=== PATIENT | male | born 1985 | race Caucasian/White ===

== ENCOUNTER 2019-01-01 09:13 | Emergency (ER) | payer BC ==
[2019-01-01] MEDS ORDERED: Sodium Chloride 0.9% 1,000 ML IV ONE (09:18)
[2019-01-01] MEDS ORDERED: Ondansetron 4 MG/2 ML SDV IVPUSH ONE (09:19)
--- NOTE | 2019-01-01 09:21 | EDM.PDOC ---
ED HPI GENERAL MEDICAL PROBLEM - General Chief Complaint: Flank Pain Stated Complaint: KIDNEY STONES Time Seen by Provider: 01/01/19 09:16 - History of Present Illness INITIAL COMMENTS - FREE TEXT/NARRATIVE: HISTORY AND PHYSICAL: History of present illness: Patient 33-year-old white male presents with a concern of flank pain patient states he had recent urolithiasis and was told he has 6-7 mm intrarenal stone he is a been on Toradol and Flomax he's had associated nausea denies fever chills or other complaints Review of systems: As per history of present illness and below otherwise all systems reviewed and negative. Past medical history: As per history of present illness and as reviewed below otherwise noncontributory. Surgical history: As per history of present illness and as reviewed below otherwise noncontributory. Social history: No reported history of drug or alcohol abuse. Family history: As per history of present illness and as reviewed below otherwise noncontributory. Physical exam: HEENT: Atraumatic, normocephalic, pupils reactive, negative for conjunctival pallor or scleral icterus, mucous membranes moist, throat clear, neck supple, nontender, trachea midline. Lungs: Clear to auscultation, breath sounds equal bilaterally, chest nontender. Heart: S1S2, regular, negative for clicks, rubs, or JVD. Abdomen: Soft, nondistended, nontender. Negative for masses or hepatosplenomegaly. Right sided costovertebral tenderness. Pelvis: Stable nontender. Genitourinary: Deferred. Rectal: Deferred. Extremities: Atraumatic, negative for cords or calf pain. Neurovascular unremarkable. Neuro: Awake, alert, oriented. Cranial nerves II through XII unremarkable. Cerebellum unremarkable. Motor and sensory unremarkable throughout. Exam nonfocal. Diagnostics: CBC CMP UA CT abdomen and pelvis Therapeutics: Saline 1 L bolus Zofran 4 mg IV Impression: #1 flank pain #2 history urolithiasis Definitive disposition and diagnosis as appropriate pending reevaluation and review of above. Right Flank Pain Score (Numeric/FACES): 5 - Related Data Allergies Allergy/AdvReac Type Severity Reaction Status Date / Time No Known Allergies Allergy Verified 01/01/19 09:17 Home Meds: Home Meds Ketorolac [Toradol] 1 tab Q4HR PRN 01/01/19 [History] Tamsulosin HCl [Flomax] 0.4 mg PO ASDIRECTED 01/01/19 [History] ED ROS GENERAL - Review of Systems Review Of Systems: ROS reveals no pertinent complaints other than HPI. ED EXAM, GENERAL - Physical Exam Exam: See Below (See dictation) Course - Vital Signs Text/Narrative:: Patient has significant improvement in emergency department course is unremarkable CT scan does demonstrate a 2 mm stone in the right ureterovesicular junction there is also a 4 mm stone within the right kidney. There is no left-sided stones noted UA CBC and chemistry were unremarkable Last Recorded V/S: Last Vital Signs Temp 36.0 C 01/01/19 09:15 Pulse 64 01/01/19 10:48 Resp 18 01/01/19 09:15 BP 137/85 01/01/19 10:48 Pulse Ox 98 01/01/19 10:48 - Orders/Labs/Meds Orders: Active Orders 24 hr Category Date Time Status CULTURE URINE [RM] Stat Lab 01/01/19 09:57 Received Labs: Laboratory Tests 01/01/19 01/01/19 01/01/19 Range/Units 09:20 09:20 09:57 WBC 10.00 (4.0-11.0) K/uL RBC 5.26 (4.50-5.90) M/uL Hgb 16.8 (13.0-17.0) g/dL Hct 47.1 (38.0-50.0) % MCV 89.5 (80.0-98.0) fL MCH 31.9 (27.0-32.0) pg MCHC 35.7 (31.0-37.0) g/dL RDW Std Deviation 40.9 (28.0-62.0) fl RDW Coeff of Jo Ann 13 (11.0-15.0) % Plt Count 214 (150-400) K/uL MPV 9.80 (7.40-12.00) fL Neut % (Auto) 65.9 (48.0-80.0) % Lymph % (Auto) 20.0 (16.0-40.0) % [place] % (Auto) 9.3 (0.0-15.0) % Eos % (Auto) 4.6 (0.0-7.0) % Baso % (Auto) 0.2 (0.0-1.5) % Neut # (Auto) 6.6 H (1.4-5.7) K/uL Lymph # (Auto) 2.0 (0.6-2.4) K/uL [place] # (Auto) 0.9 H (0.0-0.8) K/uL Eos # (Auto) 0.5 (0.0-0.7) K/uL Baso # (Auto) 0.0 (0.0-0.1) K/uL Nucleated RBC % 0.0 /100WBC Nucleated RBCs # 0 K/uL Sodium 143 (136-148) mmol/L Potassium 3.8 (3.5-5.1) mmol/L Chloride 107 (98-107) mmol/L Carbon Dioxide 26.8 (21.0-32.0) mmol/L BUN 11 (7.0-18.0) mg/dL Creatinine 1.3 (0.8-1.3) mg/dL Est Cr Clr Drug Dosing 84.47 mL/min Estimated GFR (MDRD) > 60.0 ml/min Glucose 111 H (74-106) mg/dL Calcium 8.5 (8.5-10.1) mg/dL Total Bilirubin 0.7 (0.2-1.0) mg/dL AST 27 (15-37) IU/L ALT 40 (14-63) IU/L Alkaline Phosphatase 71 (46-116) U/L Total Protein 7.3 (6.4-8.2) g/dL Albumin 3.8 (3.4-5.0) g/dL Globulin 3.5 (2.6-4.0) g/dL Albumin/Globulin Ratio 1.1 (0.9-1.6) Urine Color YELLOW Urine Appearance CLEAR Urine pH 7.5 (5.0-8.0) Ur Specific [place] 1.010 (1.001-1.035) Urine Protein NEGATIVE (NEGATIVE) mg/dL Urine Glucose (UA) NEGATIVE (NEGATIVE) mg/dL Urine Ketones NEGATIVE (NEGATIVE) mg/dL Urine Occult Blood SMALL H (NEGATIVE) Urine Nitrite NEGATIVE (NEGATIVE) Urine Bilirubin NEGATIVE (NEGATIVE) Urine Urobilinogen 0.2 (<2.0) EU/dL Ur Leukocyte Esterase TRACE H (NEGATIVE) Urine RBC 0-2 (0-2/HPF) Urine WBC 0-3 (0-5/HPF) Ur Epithelial Cells RARE (NONE-FEW) Urine Bacteria RARE (NEGATIVE) Urine Mucus LIGHT (NONE-MOD) Meds: Medications Discontinued Medications Generic Name Dose Route Start Last Admin Trade Name Lynnette PRN Reason Stop Dose Admin Sodium Chloride 1,000 mls @ 999 mls/hr 01/01/19 09:18 01/01/19 09:23 Normal Saline IV 01/01/19 10:18 999 mls/hr .Bolus ONE Administration Ondansetron HCl 4 mg 01/01/19 09:19 01/01/19 09:23 Zofran IVPUSH 01/01/19 09:20 4 mg ONETIME ONE Administration Departure - Departure Time of Disposition: 11:31 Disposition: Home, Self-Care 01 Condition: Good Clinical Impression: Ureteric colic, Ureterolithiasis - Discharge Information Forms: ED Department Discharge Additional Instructions: The following information is given to patients seen in the emergency department who are being discharged to home. This information is to outline your options for follow-up care. We provide all patients seen in our emergency department with a follow-up referral. The need for follow-up, as well as the timing and circumstances, are variable depending upon the specifics of your emergency department visit. If you don't have a primary care physician on staff, we will provide you with a referral. We always advise you to contact your personal physician following an emergency department visit to inform them of the circumstance of the visit and for follow-up with them and/or the need for any referrals to a consulting specialist. The emergency department will also refer you to a specialist when appropriate. This referral assures that you have the opportunity for followup care with a specialist. All of these measure are taken in an effort to provide you with optimal care, which includes your followup. Under all circumstances we always encourage you to contact your private physician who remains a resource for coordinating your care. When calling for followup care, please make the office aware that this follow-up is from your recent emergency room visit. If for any reason you are refused follow-up, please contact the [facility] emergency department at and asked to speak to the emergency department charge nurse. [facility] - Urology [address] [place] [id number] Continue Flomax as prescribed hydrocodone as prescribed follow-up urology as discussed push fluids and return as needed as discussed - My Orders Last 24 Hours: My Active Orders 01/01/19 09:57 CULTURE URINE [] Stat - Assessment/Plan Last 24 Hours: My Active Orders 01/01/19 09:57 CULTURE URINE [] Stat
[2019-01-01 10:02] LABS: BLOOD UREA NITROGEN,BUN 11 mg/dL (7.0-18.0); CARBON DIOXIDE,CO2 26.8 mmol/L (21.0-32.0); CHLORIDE,CL 107 mmol/L (98-107); GLUCOSE RANDOM 111 mg/dL (74-106); POTASSIUM,K 3.8 mmol/L (3.5-5.1); SODIUM,NA 143 mmol/L (136-148)
--- NOTE | 2019-01-01 10:57 | CT ---
INDICATION: Right flank pain. History of nephrolithiasis. TECHNIQUE: CT abdomen and pelvis without contrast. COMPARISON: None. FINDINGS: Lower chest: Unremarkable. Liver: Normal in size and attenuation. No masses. Gallbladder and bile ducts: No stones or inflammation. No biliary dilatation. Pancreas: Unremarkable. No mass or inflammation. Spleen: Normal in size. No masses. Adrenal glands: Normal in size. No nodules. Kidneys: A 2 mm stone is at the right ureterovesical junction causing moderate hydronephrosis. A 4 mm stone remains in the right kidney. No left-sided stones. GI tract: Unremarkable. Normal in caliber. No sign of mass or inflammation. Normal appendix. Vasculature: Unremarkable. Lymph nodes: No lymphadenopathy. Abdominal wall/Omentum/Peritoneum: Unremarkable. No sign of mass or infiltration. No free air or significant free fluid. Pelvis: Unremarkable. No pelvic masses. Bones: Unremarkable for age. IMPRESSION: 2 mm stone at the right UVJ is causing moderate hydronephrosis. Please note that all CT scans at this facility use dose modulation, iterative reconstruction, and/or weight-based dosing when appropriate to reduce radiation dose to as low as reasonably achievable. Dictated by Paco Jon MD @ Jan 01 2019 10:51AM Signed by Dr. Paco Jon @ Jan 01 2019 10:55AM
== END 2019-01-01 11:41 | disposition home or self-care (01) ==
LOC: MW.ED 09:13
DX: N13.2 Hydronephrosis with renal and ureteral calculous obstruction (principal)
CPT/HCPCS: 36415; 74176; 80053; 81001; 85025; 87086; 96361; 96374; 99284; J2405; J7040

== ENCOUNTER 2020-03-23 13:34 | Emergency (ER) | payer BC ==
[2020-03-23] MEDS ORDERED: Lactated Ringers 1,000 ML IV ONE (13:43)
[2020-03-23] MEDS ORDERED: Ketorolac 15 MG/ML SDV IVPUSH ONE (13:43)
[2020-03-23] MEDS ORDERED: Morphine 4 MG/ML Syringe IVPUSH ONE (13:49)
[2020-03-23] MEDS ORDERED: Ondansetron 4 MG/2 ML SDV IVPUSH ONE (13:58)
[2020-03-23] MEDS ORDERED: Ondansetron 4 MG/2 ML SDV ONE (13:58)
[2020-03-23 14:36] LABS: BLOOD UREA NITROGEN,BUN 15 mg/dL (7.0-18.0); CARBON DIOXIDE,CO2 28.4 mmol/L (21.0-32.0); CHLORIDE,CL 104 mmol/L (98-107); GLUCOSE RANDOM 126 mg/dL (74-106); POTASSIUM,K 4.1 mmol/L (3.5-5.1); SODIUM,NA 143 mmol/L (136-148)
[2020-03-23] MEDS ORDERED: HYDROmorphone 1 MG/ML Syringe IVPUSH ONE (15:06)
--- NOTE | 2020-03-23 15:11 | CT ---
Indication: Right flank pain Technique: Volumetric multidetector CT images of the abdomen and pelvis were without the administration of intravenous contrast. Comparison: CT abdomen pelvis January 01, 2019 Findings: There is basilar atelectasis versus scar without dense consolidation. The liver demonstrates mild hepatomegaly and hepatic steatosis. The gallbladder is unremarkable without evidence of radiopaque calculus. There is no significant common biliary ductal dilatation or abrupt cut off. The spleen is normal in attenuation and size. The stomach and duodenum are grossly unremarkable. The pancreas is normal in attenuation without significant atrophy. The adrenal glands are unremarkable. There is right-sided hydronephrosis and hydroureter with demonstration of a 6.0 millimeter calculus in the distal right ureter just above the ureterovesicular junction. There is a mild amount of stool seen throughout the colon. There is mild distal colonic diverticulosis. The appendix is unremarkable. There is no significant mesenteric, retroperitoneal, or pelvic sidewall lymph nodes. The aorta is nonaneurysmal. There is no significant atherosclerotic disease appreciated. The solid pelvic viscera are grossly unremarkable. There is no free fluid or free air. The anterior abdominal wall is intact without significant hernias. The lumbar vertebral body heights are grossly maintained in satisfactory alignment without evidence of displaced fracture, lytic or blastic lesion. Impression: Demonstration of a 6.0 millimeter calculus within the distal right ureter just above the ureterovesicular junction with associated right-sided hydronephrosis and hydroureter. Please note that all CT scans at this facility use dose modulation, iterative reconstruction, and/or weight-based dosing when appropriate to reduce radiation dose to as low as reasonably achievable. Dictated by Jarrett Hdz MD @ Mar 23 2020 3:02PM Signed by Dr. Jarrett Hdz @ Mar 23 2020 3:10PM
[2020-03-23] MEDS ORDERED: Dextrose 5%-0.9% NaCl 1,000 ML IV SCH (15:15)
--- NOTE | 2020-03-23 15:31 | EDM.PDOC ---
ED HPI GENERAL MEDICAL PROBLEM - General Chief Complaint: Genitourinary Problem Stated Complaint: POSSIBLE KIDNEY STONES Time Seen by Provider: 03/23/20 13:40 - History of Present Illness INITIAL COMMENTS - FREE TEXT/NARRATIVE: CHIEF COMPLAINT(S): Abdominal pain HISTORY OF PRESENT ILLNESS: This is a this is a 34-year-old man with a past medical history of obesity and prior kidney stone who comes to the emergency department with a chief complaint of abdominal pain. The patient states that he ran out to work this morning in [place] and he started to experience abdominal pain approximately 3 hours prior to arrival. He states that the pain starts in his right back and radiates anteriorly into his groin and his bladder. He states that it feels very similar to his prior kidney stone episodes. He rates his pain as 10 out of 10 and sharp and intermittent. He denies any aggravating or relieving symptoms. He has not yet tried any pain medication. He states that he has associated decreased urination but denies any dysuria. He denies any fevers or chills. REVIEW OF SYSTEMS: Constitutional: Denies fever, chills. Eyes: Denies eye pain Ears, Nose, Mouth, & Throat: Denies earache Cardiovascular: Denies chest pain Respiratory: Denies shortness of breath Gastrointestinal: Positive for right lower quadrant abdominal pain. Denies nausea, vomiting, diarrhea, hematochezia Genitourinary: As noted for decreased urination. Denies dysuria or hematuria MSK: Positive for right back pain Neurological: Denies blurred vision Psychiatric: Denies depression PAST MEDICAL HISTORY: As per history of present illness and as reviewed below otherwise noncontributory. SURGICAL HISTORY: As per history of present illness and as reviewed below otherwise noncontributory. SOCIAL HISTORY: As per history of present illness and as reviewed below otherwise noncontributory. FAMILY HISTORY: As per history of present illness and as reviewed below otherwise noncontributory. EXAMINATION OF ORGAN SYSTEMS/BODY AREAS: Constitutional: Blood pressure was 176/109, heart rate 59, respiratory rate 18 with an oxygen saturation 95% on room air. Temperature 34.7 temporally. General: This is a obese young man who is writhing in pain on the stretcher. Psychiatric: Appropriate mood and affect. Eyes: No scleral icterus or conjunctival erythema ENMT: Moist mucous membranes. No pharyngeal erythema Cardiovascular: Regular, rate, and rhythm. No gallops, murmurs, or rubs. Bilateral upper extremity pulses symmetric and intact. No peripheral edema. No JVD. Respiratory: Lungs clear to auscultation bilaterally. No wheezes, rales, or rhonchi. Gastrointestinal: Soft, nondistended, tenderness to palpation in the lower right quadrant. No rebound or guarding. Normoactive bowel sounds Genitourinary: Suprapubic tenderness is present. There is tenderness in the right CVA area. Musculoskeletal: Normal range of motion. Skin: No lesions or abrasions. Neurological: Alert, GCS 15 MEDICAL DECISION MAKING AND COURSE IN THE ED WITH INTERPRETATION/REVIEW OF DIAGNOSTIC STUDIES: This is a 34-year-old man with a past medical history of obesity and prior history of kidney stone who comes to the emergency department with right flank pain which radiates into his groin consistent with possible kidney stone. Differential also includes appendicitis however unlikely. Will obtain a CT abdomen pelvis without contrast for evaluation. We will provide the patient with 1 L of lactated Ringer's and 4 mg of IV Zofran and 4 mg of IV morphine for pain relief. We will obtain CBC and BMP. Obtain a urinalysis to evaluate for infection. Laboratory: CBC reveals a mild leukocytosis of 12.94 and an elevated hemoglobin at 17.5 and hematocrit of 50.3. BMP is unremarkable. Urinalysis was a clean catch and was negative for leukocyte esterase, negative for nitrites, and positive for blood. Interpretation: Hematuria The radiological images were viewed by myself along with reading the report from the radiologist. CT abdomen pelvis without contrast reveals a 6 mm calculus in the distal right ureter with right-sided hydronephrosis and hydroureter. The stone is located near the UVJ. After returning from CT the patient had continued pain therefore I provided the patient with 1 mg of Dilaudid. I also provide the patient with 1 L of D5 normal saline given the ketonuria on urinalysis. After imaging I did contact urologist Dr. Ortiz and discussed the case with him. At this time is deemed not emergent and he would like him to follow-up in his clinic tomorrow at 3:30 PM. I did discuss this with the patient and he was amenable to discharge home. I will provide the patient with Flomax and a urine strainer. He is to return for any new or worsening symptoms. After providing the patient with the additional dose of Dilaudid the patient did become more drowsy and hypoxic to the high 80s. Therefore we did place the patient on CO2 monitoring and monitored the patient. The patient was rating at a rate of 14/min however I do believe the patient has a degree of sleep apnea as his oxygen saturations did decrease in the high 80s when he fell asleep. Given that we did provide patient with Opitz we did observe the patient in the emergency department and provided the patient with 0.05 mg of Narcan. After a period of observation the patient's oxygen saturation had improved and was ambulatory and felt stable to go home. At this time I did discuss with the patient need to follow-up with Dr. Domingo tomorrow he was amenable to discharge and had no further questions. I instructed him to use Tylenol Motrin for pain relief given his reaction to opiates here in the emergency department I felt it was unsafe to send him home with opiates. DISPOSITION: The patient was discharged home in stable condition. The patient will follow up with urology tomorrow CONDITION: Fair PROCEDURES: None FINAL IMPRESSION(S)/DIAGNOSES: 1. Acute right-sided nephrolithiasis with signs of obstruction Radu Crum M.D. R flank and testicles Pain Score (Numeric/FACES): 9 - Related Data Allergies Allergy/AdvReac Type Severity Reaction Status Date / Time No Known Allergies Allergy Verified 03/23/20 13:39 Home Meds: Home Meds Tamsulosin HCl [Flomax] 0.4 mg PO DAILY #7 cap.er.24h 03/23/20 [Rx] Past Medical History - Past Health History Medical/Surgical History: Denies Medical/Surgical History HEENT History: Reports: Impaired Vision Respiratory History: Reports: Asthma Genitourinary History: Reports: Renal Calculus - Infectious Disease History Infectious Disease History: Reports: Chicken Pox - Past Surgical History GI Surgical History: Reports: Appendectomy Social & Family History - Family History Family Medical History: No Pertinent Family History - Caffeine Use Caffeine Use: Reports: Coffee, Energy Drinks, Soda, Tea - Recreational Drug Use Recreational Drug Use: No ED ROS GENERAL - Review of Systems Review Of Systems: See Below ED EXAM, RENAL/ - Physical Exam Exam: See Below Course - Vital Signs Last Recorded V/S: Last Vital Signs Temp 35.9 C L 03/23/20 18:23 Pulse 75 03/23/20 18:23 Resp 24 H 03/23/20 18:23 BP 127/76 03/23/20 18:23 Pulse Ox 95 03/23/20 18:23 - Orders/Labs/Meds Labs: Laboratory Tests 03/23/20 03/23/20 03/23/20 Range/Units 14:00 14:00 14:50 WBC 12.94 H (4.0-11.0) K/uL RBC 5.49 (4.50-5.90) M/uL Hgb 17.5 H (13.0-17.0) g/dL Hct 50.3 H (38.0-50.0) % MCV 91.6 (80.0-98.0) fL MCH 31.9 (27.0-32.0) pg MCHC 34.8 (31.0-37.0) g/dL RDW Std Deviation 43.0 (28.0-62.0) fl RDW Coeff of Jo Ann 13 (11.0-15.0) % Plt Count 237 (150-400) K/uL MPV 9.80 (7.40-12.00) fL Neut % (Auto) 85.2 H (48.0-80.0) % Lymph % (Auto) 10.2 L (16.0-40.0) % [place] % (Auto) 3.7 (0.0-15.0) % Eos % (Auto) 0.7 (0.0-7.0) % Baso % (Auto) 0.2 (0.0-1.5) % Neut # (Auto) 11.0 H (1.4-5.7) K/uL Lymph # (Auto) 1.3 (0.6-2.4) K/uL [place] # (Auto) 0.5 (0.0-0.8) K/uL Eos # (Auto) 0.1 (0.0-0.7) K/uL Baso # (Auto) 0.0 (0.0-0.1) K/uL Nucleated RBC % 0.0 /100WBC Nucleated RBCs # 0 K/uL Sodium 143 (136-148) mmol/L Potassium 4.1 (3.5-5.1) mmol/L Chloride 104 (98-107) mmol/L Carbon Dioxide 28.4 (21.0-32.0) mmol/L BUN 15 (7.0-18.0) mg/dL Creatinine 1.3 (0.8-1.3) mg/dL Est Cr Clr Drug Dosing 83.67 mL/min Estimated GFR (MDRD) > 60.0 ml/min Glucose 126 H (74-106) mg/dL Calcium 9.4 (8.5-10.1) mg/dL Urine Color YELLOW Urine Appearance SLT CLOUDY Urine pH 8.5 H (5.0-8.0) Ur Specific [place] 1.020 (1.001-1.035) Urine Protein TRACE H (NEGATIVE) mg/dL Urine Glucose (UA) NEGATIVE (NEGATIVE) mg/dL Urine Ketones 15 H (NEGATIVE) mg/dL Urine Occult Blood LARGE H (NEGATIVE) Urine Nitrite NEGATIVE (NEGATIVE) Urine Bilirubin NEGATIVE (NEGATIVE) Urine Urobilinogen 0.2 (<2.0) EU/dL Ur Leukocyte Esterase NEGATIVE (NEGATIVE) Urine RBC 50-60 (0-2/HPF) Urine WBC 0-2 (0-5/HPF) Ur Epithelial Cells RARE (NONE-FEW) Urine Bacteria RARE (NEGATIVE) Meds: Medications Discontinued Medications Generic Name Dose Route Start Last Admin Trade Name Freq PRN Reason Stop Dose Admin Hydromorphone HCl 1 mg 03/23/20 15:06 03/23/20 15:14 Dilaudid IVPUSH 03/23/20 15:07 1 mg ONETIME ONE Administration Lactated Ringer's 1,000 mls @ 999 mls/hr 03/23/20 13:43 03/23/20 14:06 Ringers, Lactated IV 03/23/20 14:43 999 mls/hr .BOLUS ONE Administration Dextrose/Sodium Chloride 1,000 mls @ 999 mls/hr 03/23/20 15:15 03/23/20 15:14 Dextrose 5%-Normal Saline IV 999 mls/hr ASDIRECTED CAMACHO Administration Ketorolac Tromethamine 15 mg 03/23/20 13:43 03/23/20 14:07 Toradol IVPUSH 03/23/20 13:44 Not Given ONETIME ONE Morphine Sulfate 4 mg 03/23/20 13:49 03/23/20 14:02 Morphine IVPUSH 03/23/20 13:50 4 mg ONETIME ONE Administration Naloxone HCl 0.05 mg 03/23/20 17:43 03/23/20 17:53 Narcan IVPUSH 03/23/20 17:44 0.05 mg ONETIME ONE Administration Ondansetron HCl 4 mg 03/23/20 13:58 03/23/20 14:02 Zofran IVPUSH 03/23/20 13:59 4 mg ONETIME ONE Administration Ondansetron HCl Confirm 03/23/20 13:58 03/23/20 14:03 Zofran Administered 03/23/20 13:59 Not Given Dose 4 mg .ROUTE .STK-MED ONE Departure - Departure Time of Disposition: 18:25 Disposition: Home, Self-Care 01 Condition: Fair Clinical Impression: Ureterolithiasis - Discharge Information *PRESCRIPTION DRUG MONITORING PROGRAM REVIEWED*: No *COPY OF PRESCRIPTION DRUG MONITORING REPORT IN PATIENT DELORES: No Prescriptions: Tamsulosin HCl [Flomax] 0.4 mg PO DAILY #7 cap.er.24h Instructions: Kidney Stones, [id number] Referrals: Parveen Ortiz MD [Physician] - Forms: ED Department Discharge Additional Instructions: The patient is informed of any results of their evaluation and diagnostic workup and all questions are answered. They are given discharge instructions and return precautions. The patient is stable for discharge. The patient states they understand and agree with the plan and that they will return if their symptoms get worse or if they have any new concerns. The following information is given to patients seen in the emergency department who are being discharged to home. This information is to outline your options for follow-up care. We provide all patients seen in our emergency department with a follow-up referral. The need for follow-up, as well as the timing and circumstances, are variable depending upon the specifics of your emergency department visit. If you don't have a primary care physician on staff, we will provide you with a referral. We always advise you to contact your personal physician following an emergency department visit to inform them of the circumstance of the visit and for follow-up with them and/or the need for any referrals to a consulting specialist. The emergency department will also refer you to a specialist when appropriate. This referral assures that you have the opportunity for follow-up care with a specialist. All of these measure are taken in an effort to provide you with optimal care, which includes your follow-up. Under all circumstances we always encourage you to contact your private physician who remains a resource for coordinating your care. When calling for follow-up care, please make the office aware that this follow-up is from your recent emergency room visit. If for any reason you are refused follow-up, please contact the [facility] Emergency Department at and asked to speak to the emergency department charge nurse. You were evaluated today on an emergent basis. You were diagnosed with a right kidney stone. At this time the stone has not passed. You have a follow-up appointment tomorrow at [facility] with Dr. Ortiz please make this appointment. Please use Tylenol and Motrin for pain relief. If you have any new or worsening symptoms please return to the emergency department. In addition I would like you to follow-up with a primary care physician in order to for further work-up for possible sleep apnea. Numbers are provided below. [facility] - Urology [address] [place] [id number] [facility] - Primary Care [address] [place] [address] [id number] [address] [address] Sepsis Event Note (ED) - Evaluation Sepsis Screening Result: No Definite Risk
[2020-03-23] MEDS ORDERED: Naloxone 0.4 MG/ML Syringe IVPUSH ONE (17:43)
--- NOTE | 2020-03-25 17:42 | PCM.SN.2 ---
- Free Text/Narrative Note: I called the patient for follow up. The patient stated that he had made his appointment with Dr. Ortiz and was feeling much better. He stated that he was scheduled for surgery on 03/31. I encouraged him to keep the appointment and to return to the ED if he had any worsening symptoms.
== END 2020-03-23 18:39 | disposition home or self-care (01) ==
LOC: MW.ED 13:34
DX: N13.2 Hydronephrosis with renal and ureteral calculous obstruction (principal); J45.909 Unspecified asthma, uncomplicated; E66.9 Obesity, unspecified; Z68.38 Body mass index [BMI] 38.0-38.9, adult; Z79.899 Other long term (current) drug therapy
CPT/HCPCS: 36415; 74176; 80048; 81001; 85025; 96374; 96375; 99284; A9270; J1170; J2270; J2405; J7042; J7120

== ENCOUNTER 2020-05-22 11:55 | Observation (INO) | payer BC ==
[2020-05-22] MEDS ORDERED: Morphine 4 MG/ML Syringe IVPUSH ONE (12:03)
[2020-05-22] MEDS ORDERED: Lactated Ringers 1,000 ML IV SCH ×3 (12:15→17:00)
[2020-05-22] MEDS ORDERED: HYDROmorphone 2 MG/ML Syringe IVPUSH ONE (13:08)
[2020-05-22 13:10] LABS: CARBON DIOXIDE,CO2 28.1 mmol/L (21.0-32.0); POTASSIUM,K 4.1 mmol/L (3.5-5.1)
--- NOTE | 2020-05-22 14:00 | CT ---
INDICATION: Right-sided abdominal pain. Nephrolithiasis. TECHNIQUE: CT abdomen and pelvis without contrast. Coronal/sagittal reconstruction images. COMPARISON: 03/23/2020. FINDINGS: Lower chest: Partially visualized right-sided gynecomastia, image 1, series 2017. mosaic attenuation of the lung parenchyma, seen best in the right middle lobe, which may indicate small airways disease/air-trapping. 8 Liver: Unremarkable. Spleen: Unremarkable. Pancreas: Unremarkable. Gallbladder and bile ducts: Unremarkable. Kidneys: There is moderate right hydronephrosis. There is a urolith at the right UVJ, which has migrated when compared with 03/23/2020. This measures 6 millimeters, image 190, series 201, and 732 Hounsfield units. Adrenal glands: Unremarkable. GI tract: Unremarkable. Appendix is normal. Vascular structures: Unremarkable. Lymph nodes: Unremarkable. Miscellaneous: Unremarkable. No free air or significant free fluid. Pelvic Organs: Unremarkable. Bones: Unremarkable for age. IMPRESSION: 1. Moderate right hydronephrosis/hydroureter. 2. 6 millimeters stone in the right distal ureter has migrated distally, and is now seen at the right UVJ. 3. Examination is otherwise stable when compared with 03/23/2020. 4. Urologic consultation is suggested for these findings. Please note that all CT scans at this facility use dose modulation, iterative reconstruction, and/or weight-based dosing when appropriate to reduce radiation dose to as low as reasonably achievable. Dictated by Wilfredo Sr MD @ May 22 2020 1:52PM Signed by Dr. Wilfredo Sr @ May 22 2020 1:58PM
--- NOTE | 2020-05-22 16:41 | PCM.HP.2 ---
H&P History of Present Illness - General Date of Service: 05/22/20 Admit Problem/Dx: Admission Diagnosis/Problem Admission Diagnosis/Problem Kidney stone Source of Information: Patient History Limitations: Reports: No Limitations - History of Present Illness Initial Comments - Free Text/Narative: 34-year-old male presents complaining of right flank pain that started this mo rning. He has a PMH of asthma. He was diagnosed with a kidney stone in Mar 2020 and did not pass it as of yet. He reports having intense pain this morning where he could not even stand up straight. HE also had associate nausea and non-bloody emesis. He has not had much to eat since this morning. He has not had any fevers, chills, sore throat, cough, SOB, chest pain, blood in stool, blood in urine, numbness or tingling in extremities. In the ER, WBC 13 000, Creatinine 1.6, CT abd showed 6 mm stone in right UVJ and moderate right hydronephrosis. ER provider contacted urology at [facility] in [place] for recommendations. Urology stated patient can stay at our facility for now, treat with anti-emetic, pain control and observe for spontaneous passage of stone. If stone does not pass spontaneously then patient can be transferred then. Patient was given IV 1 L LR bolus, morphine 4 mg and dilaudid 0.5 mg. He was admitted for further evaluation and treatment. right flank Pain Score (Numeric/FACES): 7 - Related Data Allergies/Adverse Reactions: Allergies Allergy/AdvReac Type Severity Reaction Status Date / Time No Known Allergies Allergy Verified 05/22/20 12:16 Home Medications: Home Meds . [No Known Home Meds] 05/22/20 [History] Past Medical History - Past Health History Medical/Surgical History: Denies Medical/Surgical History HEENT History: Reports: Impaired Vision Other HEENT History: wears glasses Cardiovascular History: Reports: None Respiratory History: Reports: Asthma Gastrointestinal History: Reports: None Genitourinary History: Reports: Renal Calculus Musculoskeletal History: Reports: Back Pain, Chronic, Fracture Other Musculoskeletal History: states has fractured his right arm, right fibula, bones in both hands in the past Neurological History: Reports: Concussion Psychiatric History: Reports: None Endocrine/Metabolic History: Reports: Obesity/BMI 30+ Hematologic History: Reports: None Immunologic History: Reports: Other (See Below) Other Immunologic History: states had Hepatitis C last year but it "cured itself" Oncologic (Cancer) History: Reports: None Dermatologic History: Reports: None - Infectious Disease History Infectious Disease History: Reports: Chicken Pox, Hepatitis C Other Infectious Disease History: states had chicken pox when a child and had Hepatits C and it "cured itself" - Past Surgical History Head Surgeries/Procedures: Reports: None HEENT Surgical History: Reports: Oral Surgery Other HEENT Surgeries/Procedures: states had wisdom teeth removed Cardiovascular Surgical History: Reports: None GI Surgical History: Reports: Appendectomy Male Surgical History: Reports: None Endocrine Surgical History: Reports: None Neurological Surgical History: Reports: None Musculoskeletal Surgical History: Reports: None Social & Family History - Family History Family Medical History: No Pertinent Family History - Tobacco Use Tobacco Use Status *Q: Current Every Day Tobacco User Years of Tobacco use: 17 Packs/Tins Daily: 1 - Caffeine Use Caffeine Use: Reports: Coffee, Energy Drinks, Soda, Tea - Recreational Drug Use Recreational Drug Use: No H&P Review of Systems - Review of Systems: Review Of Systems: Comprehensive ROS is negative, except as noted in HPI. Exam - Exam Exam: See Below - Vital Signs Vital Signs: Last Vital Signs Temp 35.4 C L 05/22/20 12:13 Pulse 64 05/22/20 15:12 Resp 16 05/22/20 12:13 BP 152/94 H 05/22/20 15:12 Pulse Ox 93 L 05/22/20 15:12 Weight: 129.274 kg - Exam General: Alert, Oriented, Cooperative, Other (NAD) HEENT: Conjunctiva Clear, EOMI, Hearing Intact, Posterior Pharynx Clear, Pupils Equal, Pupils Reactive Neck: Supple, Trachea Midline Lungs: Clear to Auscultation, Normal Respiratory Effort Cardiovascular: Regular Rate, Regular Rhythm GI/Abdominal Exam: Normal Bowel Sounds, Soft, No Distention, Other (mild right flank pain) Extremities: Normal Inspection, No Pedal Edema Skin: Warm, Dry, Intact Neurological: Cranial Nerves Intact, Strength Equal Bilateral, Normal Speech, Normal Tone Neuro Extensive - Mental Status: Alert, Oriented x3, Normal Mood/Affect Psychiatric: Alert, Normal Affect, Normal Mood - Patient Data Lab Results Last 24 hrs: Laboratory Results - last 24 hr 05/22/20 05/22/20 05/22/20 Range/Units 12:34 12:34 13:00 WBC 13.44 H (4.0-11.0) K/uL RBC 5.26 (4.50-5.90) M/uL Hgb 16.7 (13.0-17.0) g/dL Hct 48.1 (38.0-50.0) % MCV 91.4 (80.0-98.0) fL MCH 31.7 (27.0-32.0) pg MCHC 34.7 (31.0-37.0) g/dL RDW Std Deviation 41.4 (28.0-62.0) fl RDW Coeff of Jo Ann 12 (11.0-15.0) % Plt Count 236 (150-400) K/uL MPV 9.80 (7.40-12.00) fL Neut % (Auto) 77.5 (48.0-80.0) % Lymph % (Auto) 13.3 L (16.0-40.0) % Murray % (Auto) 7.4 (0.0-15.0) % Eos % (Auto) 1.7 (0.0-7.0) % Baso % (Auto) 0.1 (0.0-1.5) % Neut # (Auto) 10.4 H (1.4-5.7) K/uL Lymph # (Auto) 1.8 (0.6-2.4) K/uL Murray # (Auto) 1.0 H (0.0-0.8) K/uL Eos # (Auto) 0.2 (0.0-0.7) K/uL Baso # (Auto) 0.0 (0.0-0.1) K/uL Nucleated RBC % 0.0 /100WBC Nucleated RBCs # 0 K/uL Sodium 139 (136-148) mmol/L Potassium 4.1 (3.5-5.1) mmol/L Chloride 103 (98-107) mmol/L Carbon Dioxide 28.1 (21.0-32.0) mmol/L BUN 16 (7.0-18.0) mg/dL Creatinine 1.6 H (0.8-1.3) mg/dL Est Cr Clr Drug Dosing 67.98 mL/min Estimated GFR (MDRD) 49.2 ml/min Glucose 112 H (74-106) mg/dL Calcium 8.7 (8.5-10.1) mg/dL Total Bilirubin 0.6 (0.2-1.0) mg/dL AST 27 (15-37) IU/L ALT 60 (14-63) IU/L Alkaline Phosphatase 59 (46-116) U/L Total Protein 7.3 (6.4-8.2) g/dL Albumin 4.1 (3.4-5.0) g/dL Globulin 3.2 (2.6-4.0) g/dL Albumin/Globulin Ratio 1.3 (0.9-1.6) Urine Color YELLOW Urine Appearance CLEAR Urine pH 6.0 (5.0-8.0) Ur Specific [place] >= 1.030 (1.001-1.035) Urine Protein TRACE H (NEGATIVE) mg/dL Urine Glucose (UA) NEGATIVE (NEGATIVE) mg/dL Urine Ketones 15 H (NEGATIVE) mg/dL Urine Occult Blood LARGE H (NEGATIVE) Urine Nitrite NEGATIVE (NEGATIVE) Urine Bilirubin NEGATIVE (NEGATIVE) Urine Urobilinogen 0.2 (<2.0) EU/dL Ur Leukocyte Esterase NEGATIVE (NEGATIVE) Urine RBC 10-20 (0-2/HPF) Urine WBC 0-2 (0-5/HPF) Ur Epithelial Cells RARE (NONE-FEW) Urine Bacteria FEW (NEGATIVE) Urine Mucus LIGHT (NONE-MOD) Result Diagrams: 05/22/20 12:34 05/22/20 12:34 Sepsis Event Note - Evaluation Sepsis Screening Result: No Definite Risk - Focused Exam Vital Signs: Vital Signs Temp Pulse Resp BP Pulse Ox 05/22/20 15:12 64 152/94 H 93 L 05/22/20 14:43 82 142/91 H 93 L 05/22/20 14:13 65 156/103 H 96 05/22/20 13:43 67 152/97 H 94 L 05/22/20 13:26 65 161/93 H 95 05/22/20 12:13 35.4 C L 81 16 168/111 H 95 - Problem List (1) Ureterolithiasis SNOMED Code(s): 77958303 ICD Code: N20.1 - CALCULUS OF URETER Status: Acute Current Visit: No (2) MAGGI (acute kidney injury) SNOMED Code(s): 55259521, 70512752 ICD Code: N17.9 - ACUTE KIDNEY FAILURE, UNSPECIFIED Status: Acute Current Visit: Yes Problem List Initiated/Reviewed/Updated: Yes Orders Last 24hrs: Active Orders 24 hr Category Date Time Status Admission Status [Patient Status] [ADT] Stat ADT 05/22/20 16:05 Active NPO [Nothing Per Oral Diet] [DIET] Diet 05/23/20 Breakfast Active CORONAVIRUS COVID-19 HAILEY [MOLEC] Stat Lab 05/22/20 16:20 Received Lactated Ringers [Ringers, Lactated] 1,000 ml Med 05/22/20 12:15 Active IV ASDIRECTED Lactated Ringers [Ringers, Lactated] 1,000 ml Med 05/22/20 16:15 Active IV ASDIRECTED Medication Orders Lactated Ringer's (Ringers, Lactated) 1,000 mls @ 999 mls/hr IV ASDIRECTED [facility] Last Admin: 05/22/20 12:26 Dose: 999 mls/hr Documented by: MAVERICK Lactated Ringer's (Ringers, Lactated) 1,000 mls @ 150 mls/hr IV ASDIRECTED [facility] Assessment/Plan Comment:: Assessment and Plan: 1. Right ureteral stone: - Admit to med/surg. CT abd/pelvis showed right 6 mm ureteral stone at UVJ with moderate right hydronephrosis. Will start patient on CLD, zofran prn, IV morphine 2 mg q4 prn, tamsulosin 0.4 mg qd and IV LR's @ 125 cc/hr. Strain urine and observe for stone passage. - ER provider contacted urology at [facility] in [place] for recommendations. Urology stated patient can stay at our facility for now, treat with anti-emetic, pain control and observe for spontaneous passage of stone. If stone does not pass spontaneously then patient can be transferred then. 2. MAGGI: - Creatinine 1.6. Avoid nephrotoxic medication. Will continue to monitor. 3. DVT prophylaxis: - Heparin 5000 units subcut q8h.
[2020-05-22] MEDS ORDERED: Morphine 10 MG/ML Syringe IVPUSH PRN (16:46)
[2020-05-22] MEDS ORDERED: Acetaminophen 325 MG Tab PO PRN (16:46)
[2020-05-22] MEDS ORDERED: Ondansetron 4 MG/2 ML SDV IVPUSH PRN (16:46)
[2020-05-22] MEDS: Tamsulosin 0.4 MG Cap.ER PO SCH (17:49)
[2020-05-22] MEDS: Heparin Sodium 5,000 Units/ML Vial SUBCUT SCH (17:49)
--- NOTE | 2020-05-22 18:00 | EDM.PDOC ---
ED HPI GENERAL MEDICAL PROBLEM - General Chief Complaint: Genitourinary Problem Stated Complaint: kidney stone/vomiting Time Seen by Provider: 05/22/20 12:01 Source of Information: Reports: Patient History Limitations: Reports: No Limitations - History of Present Illness INITIAL COMMENTS - FREE TEXT/NARRATIVE: CHIEF COMPLAINT(S): Right flank pain HISTORY OF PRESENT ILLNESS: This is a 34-year-old man with a past medical history of obstructive nephrolithiasis who comes to the emergency department with a chief complaint of right flank pain. The patient states that he had a kidney stone in March 2020. He states that he followed up with urology and they canceled the surgery. He states that since that time he has been having intermittent right flank pain however it worsened this morning. He describes the pain as 10 out of 10 that starts in his right flank and radiates towards his groin. He states that he has had some decreased urination but denies any dysuria or hematuria. He denies any fevers or chills. He states that he did take a [place] at home which did not help the pain so he decided to come to the emergency department. He denies any nausea, vomiting, diarrhea or hematochezia. He denies any chest pain or shortness of breath. REVIEW OF SYSTEMS: Constitutional: Denies fever, chills. Eyes: Denies eye pain Ears, Nose, Mouth, & Throat: Denies earache Cardiovascular: Denies chest pain Respiratory: Denies shortness of breath Gastrointestinal: Denies Nausea, vomiting, diarrhea, hematochezia. Genitourinary: Positive for right flank pain and right groin pain. Denies dysuria, hematuria Skin:Denies a rash MSK: Denies joint pain Neurological: Denies blurred vision Psychiatric: Denies depression PAST MEDICAL HISTORY: As per history of present illness and as reviewed below otherwise noncontributory. SURGICAL HISTORY: As per history of present illness and as reviewed below otherwise noncontributory. SOCIAL HISTORY: As per history of present illness and as reviewed below otherwise noncontributory. FAMILY HISTORY: As per history of present illness and as reviewed below otherwise noncontributory. EXAMINATION OF ORGAN SYSTEMS/BODY AREAS: Constitutional: Blood pressure is 168/111, heart rate 81, respiratory rate 16 with an oxygen saturation 95% on room air. Temperature 35.4 temporally General: Young man who appears to be in a moderate amount of pain. Psychiatric: Appropriate mood and affect. Eyes: No scleral icterus or conjunctival erythema ENMT: Moist mucous membranes. No pharyngeal erythema Cardiovascular: Regular, rate, and rhythm. No gallops, murmurs, or rubs. Bilateral upper extremity pulses symmetric and intact. No peripheral edema. No JVD. Respiratory: Lungs clear to auscultation bilaterally. No wheezes, rales, or rhonchi. Gastrointestinal: Soft, non-tender, non-distended. Normoactive bowel sounds no rebound or guarding Genitourinary: Right CVA tenderness with mild suprapubic tenderness. Musculoskeletal: Normal range of motion. Skin: No lesions or abrasions. Neurological: Alert, GCS 15 MEDICAL DECISION MAKING AND COURSE IN THE ED WITH INTERPRETATION/REVIEW OF DIAGNOSTIC STUDIES: This is a 34-year-old man and with a past medical history of obstructive nephrolithiasis who comes to the emergency department with right flank pain radiating to the right groin. At this time I did review the patient' s chart. I did see this patient in March who was diagnosed with a 6 mm obstructing stone. He states that he has not passed a stone therefore I do believe the stone is still obstructing therefore we will obtain labs including CBC, BMP, urinalysis. We will provide the patient with 4 mg of IV morphine and 1 L of lactated Ringer's bolus. Will obtain a CT abdomen pelvis without contrast. RN notified me that the morphine did not help therefore I provided the patient with 0.5 mg of Dilaudid. Last time we provided the patient with 1 mg he did have hypoxia and some apnea requiring Narcan. Laboratory: CBC reveals a leukocytosis of 13.44 which is up from prior at 12.94 with normal indices. There are no left shift or segmented neutrophils. CMP reveals elevated creatinine at 1.6 which is up from 1.3 last time. Hyperglycemia at 112 otherwise unremarkable. Covid is negative Urinalysis was a clean catch and was negative for leukocyte esterase, negative for nitrites, and positive for blood. Interpretation: Hematuria with ketonuria The radiological images were viewed by myself along with reading the report from the radiologist. CT abdomen pelvis without contrast reveals a 6 mm obstructing stone with moderate right-sided hydronephrosis located at the right UVJ. After imaging given that our urologist is not here until June 07, 2020 I did contact [facility] in [place] and spoke to Dr. Barakat. At this time she requested that the patient be admitted for observation, fluid hydration for the acute kidney injury and to strain the urine throughout the evening to see if the stone will pass. She states if the kidney function worsens or the white count or the patient becomes febrile she would gladly accept the patient for transfer for intervention to remove the stone. I did discuss this with the patient and he was amenable to this plan. I contacted Dr. Romero who accepted the patient for observation admission. DISPOSITION: The patient was admitted for observation in stable condition CONDITION: Fair PROCEDURES: None FINAL IMPRESSION(S)/DIAGNOSES: 1. Acute right flank pain secondary to obstructive right-sided nephrolithiasis 2. Acute kidney injury 3. Leukocytosis Radu Crum M.D. right flank Pain Score (Numeric/FACES): 7 - Related Data Allergies Allergy/AdvReac Type Severity Reaction Status Date / Time No Known Allergies Allergy Verified 05/22/20 12:16 Home Meds: Home Meds . [No Known Home Meds] 05/22/20 [History] Past Medical History - Past Health History Medical/Surgical History: Denies Medical/Surgical History HEENT History: Reports: Impaired Vision Other HEENT History: wears glasses Cardiovascular History: Reports: None Respiratory History: Reports: Asthma Gastrointestinal History: Reports: None Genitourinary History: Reports: Renal Calculus Musculoskeletal History: Reports: Back Pain, Chronic, Fracture Other Musculoskeletal History: states has fractured his right arm, right fibula, bones in both hands in the past Neurological History: Reports: Concussion Psychiatric History: Reports: None Endocrine/Metabolic History: Reports: Obesity/BMI 30+ Hematologic History: Reports: None Immunologic History: Reports: Other (See Below) Other Immunologic History: states had Hepatitis C last year but it "cured itself" Oncologic (Cancer) History: Reports: None Dermatologic History: Reports: None - Infectious Disease History Infectious Disease History: Reports: Chicken Pox, Hepatitis C Other Infectious Disease History: states had chicken pox when a child and had Hepatits C and it "cured itself" - Past Surgical History Head Surgeries/Procedures: Reports: None HEENT Surgical History: Reports: Oral Surgery Other HEENT Surgeries/Procedures: states had wisdom teeth removed Cardiovascular Surgical History: Reports: None GI Surgical History: Reports: Appendectomy Male Surgical History: Reports: None Endocrine Surgical History: Reports: None Neurological Surgical History: Reports: None Musculoskeletal Surgical History: Reports: None Social & Family History - Family History Family Medical History: No Pertinent Family History - Tobacco Use Tobacco Use Status *Q: Current Every Day Tobacco User Years of Tobacco use: 17 Packs/Tins Daily: 1 - Caffeine Use Caffeine Use: Reports: Coffee, Energy Drinks, Soda, Tea - Recreational Drug Use Recreational Drug Use: No ED ROS GENERAL - Review of Systems Review Of Systems: See Below ED EXAM, GENERAL - Physical Exam Exam: See Below GI/Abdominal: Normal Bowel Sounds, Soft, No Distention, Other (mild right flank pain) Extremities: Normal Inspection, No Pedal Edema Course - Vital Signs Last Recorded V/S: Last Vital Signs Temp 35.4 C L 05/22/20 12:13 Pulse 61 05/22/20 17:42 Resp 16 05/22/20 12:13 BP 155/102 H 05/22/20 17:42 Pulse Ox 96 05/22/20 17:42 - Orders/Labs/Meds Orders: Medication Orders Acetaminophen (Tylenol) 650 mg PO Q4H PRN PRN Reason: Pain (Mild 1-3)/fever Heparin Sodium (Porcine) (Heparin Sodium) 5,000 units SUBCUT Q8H [facility] Last Admin: 05/22/20 17:49 Dose: 5,000 units Documented by: VIRIDIANA Lactated Ringer's (Ringers, Lactated) 1,000 mls @ 125 mls/hr IV ASDIRECTED [facility] Stop: 05/23/20 00:59 Morphine Sulfate (Morphine) 2 mg IVPUSH Q4H PRN PRN Reason: Pain (severe 7-10) Stop: 05/23/20 16:47 Ondansetron HCl (Zofran) 4 mg IVPUSH Q4H PRN PRN Reason: Nausea Pantoprazole Sodium (Protonix) 40 mg PO DAILY [facility] Tamsulosin HCl (Flomax) 0.4 mg PO DAILY [facility] Last Admin: 05/22/20 17:49 Dose: 0.4 mg Documented by: VIRIDIANA Labs: Laboratory Tests 05/22/20 05/22/20 05/22/20 Range/Units 12:34 12:34 13:00 WBC 13.44 H (4.0-11.0) K/uL RBC 5.26 (4.50-5.90) M/uL Hgb 16.7 (13.0-17.0) g/dL Hct 48.1 (38.0-50.0) % MCV 91.4 (80.0-98.0) fL MCH 31.7 (27.0-32.0) pg MCHC 34.7 (31.0-37.0) g/dL RDW Std Deviation 41.4 (28.0-62.0) fl RDW Coeff of Jo Ann 12 (11.0-15.0) % Plt Count 236 (150-400) K/uL MPV 9.80 (7.40-12.00) fL Neut % (Auto) 77.5 (48.0-80.0) % Lymph % (Auto) 13.3 L (16.0-40.0) % [place] % (Auto) 7.4 (0.0-15.0) % Eos % (Auto) 1.7 (0.0-7.0) % Baso % (Auto) 0.1 (0.0-1.5) % Neut # (Auto) 10.4 H (1.4-5.7) K/uL Lymph # (Auto) 1.8 (0.6-2.4) K/uL [place] # (Auto) 1.0 H (0.0-0.8) K/uL Eos # (Auto) 0.2 (0.0-0.7) K/uL Baso # (Auto) 0.0 (0.0-0.1) K/uL Nucleated RBC % 0.0 /100WBC Nucleated RBCs # 0 K/uL Sodium 139 (136-148) mmol/L Potassium 4.1 (3.5-5.1) mmol/L Chloride 103 (98-107) mmol/L Carbon Dioxide 28.1 (21.0-32.0) mmol/L BUN 16 (7.0-18.0) mg/dL Creatinine 1.6 H (0.8-1.3) mg/dL Est Cr Clr Drug Dosing 67.98 mL/min Estimated GFR (MDRD) 49.2 ml/min Glucose 112 H (74-106) mg/dL Calcium 8.7 (8.5-10.1) mg/dL Total Bilirubin 0.6 (0.2-1.0) mg/dL AST 27 (15-37) IU/L ALT 60 (14-63) IU/L Alkaline Phosphatase 59 (46-116) U/L Total Protein 7.3 (6.4-8.2) g/dL Albumin 4.1 (3.4-5.0) g/dL Globulin 3.2 (2.6-4.0) g/dL Albumin/Globulin Ratio 1.3 (0.9-1.6) Urine Color YELLOW Urine Appearance CLEAR Urine pH 6.0 (5.0-8.0) Ur Specific [place] >= 1.030 (1.001-1.035) Urine Protein TRACE H (NEGATIVE) mg/dL Urine Glucose (UA) NEGATIVE (NEGATIVE) mg/dL Urine Ketones 15 H (NEGATIVE) mg/dL Urine Occult Blood LARGE H (NEGATIVE) Urine Nitrite NEGATIVE (NEGATIVE) Urine Bilirubin NEGATIVE (NEGATIVE) Urine Urobilinogen 0.2 (<2.0) EU/dL Ur Leukocyte Esterase NEGATIVE (NEGATIVE) Urine RBC 10-20 (0-2/HPF) Urine WBC 0-2 (0-5/HPF) Ur Epithelial Cells RARE (NONE-FEW) Urine Bacteria FEW (NEGATIVE) Urine Mucus LIGHT (NONE-MOD) Meds: Medications Generic Name Dose Route Start Last Admin Trade Name Freq PRN Reason Stop Dose Admin Acetaminophen 650 mg 05/22/20 16:46 Tylenol PO Q4H PRN Pain (Mild 1-3)/fever Heparin Sodium (Porcine) 5,000 units 05/22/20 17:00 05/22/20 17:49 Heparin Sodium SUBCUT 5,000 units Q8H [facility] Administration Lactated Ringer's 1,000 mls @ 125 mls/hr 05/22/20 17:00 Ringers, Lactated IV 05/23/20 00:59 ASDIRECTED [facility] Morphine Sulfate 2 mg 05/22/20 16:46 Morphine IVPUSH 05/23/20 16:47 Q4H PRN Pain (severe 7-10) Ondansetron HCl 4 mg 05/22/20 16:46 Zofran IVPUSH Q4H PRN Nausea Pantoprazole Sodium 40 mg 05/22/20 17:45 Protonix PO DAILY [facility] Tamsulosin HCl 0.4 mg 05/22/20 17:00 05/22/20 17:49 Flomax PO 0.4 mg DAILY [facility] Administration Discontinued Medications Generic Name Dose Route Start Last Admin Trade Name Lynnette PRN Reason Stop Dose Admin Hydromorphone HCl 0.5 mg 05/22/20 13:08 05/22/20 13:17 Dilaudid IVPUSH 05/22/20 13:09 0.5 mg ONETIME ONE Administration Lactated Ringer's 1,000 mls @ 999 mls/hr 05/22/20 12:15 05/22/20 12:26 Ringers, Lactated IV 999 mls/hr ASDIRECTED [facility] Administration Lactated Ringer's 1,000 mls @ 150 mls/hr 05/22/20 16:15 Ringers, Lactated IV ASDIRECTED [facility] Morphine Sulfate 4 mg 05/22/20 12:03 05/22/20 12:26 Morphine IVPUSH 05/22/20 12:04 4 mg ONETIME ONE Administration Departure - Departure Time of Disposition: 16:05 Disposition: Still A Patient 30 Clinical Impression: Nephrolithiasis - Discharge Information Sepsis Event Note (ED) - Evaluation Sepsis Screening Result: No Definite Risk - Focused Exam Vital Signs: Vital Signs Temp Pulse Resp BP Pulse Ox 05/22/20 15:42 82 146/91 H 93 L 05/22/20 15:12 64 152/94 H 93 L 05/22/20 14:43 82 142/91 H 93 L 05/22/20 14:13 65 156/103 H 96 05/22/20 13:43 67 152/97 H 94 L 05/22/20 13:26 65 161/93 H 95 05/22/20 12:13 35.4 C L 81 16 168/111 H 95
[2020-05-22] MEDS: Pantoprazole 40 MG Tab.CR PO SCH (18:24)
[2020-05-23] MEDS: Heparin Sodium 5,000 Units/ML Vial SUBCUT SCH ×2 (00:26→08:11)
[2020-05-23 07:01] LABS: BLOOD UREA NITROGEN,BUN 14 mg/dL (7.0-18.0); CARBON DIOXIDE,CO2 29.5 mmol/L (21.0-32.0); CHLORIDE,CL 104 mmol/L (98-107); GLUCOSE RANDOM 89 mg/dL (74-106); POTASSIUM,K 4.4 mmol/L (3.5-5.1); SODIUM,NA 140 mmol/L (136-148)
[2020-05-23] MEDS: Pantoprazole 40 MG Tab.CR PO SCH (08:11)
[2020-05-23] MEDS: Tamsulosin 0.4 MG Cap.ER PO SCH (08:11)
[2020-05-23] MEDS ORDERED: Morphine 2 MG/ML SYRINGE IVPUSH PRN (08:51)
--- NOTE | 2020-05-23 11:26 | PCM.DCSUM1 ---
Discharge Summary - Hospital Course Free Text/Narrative:: 34-year-old male presents complaining of right flank pain that started this morning. He has a PMH of asthma. He was diagnosed with a kidney stone in Mar 2020 and did not pass it as of yet. He reports having intense pain this morning where he could not even stand up straight. HE also had associate nausea and non- bloody emesis. He has not had much to eat since this morning. He has not had any fevers, chills, sore throat, cough, SOB, chest pain, blood in stool, blood in urine, numbness or tingling in extremities. In the ER, WBC 13 000, Creatinine 1.6, CT abd showed 6 mm stone in right UVJ and moderate right hydronephrosis. UA was negative for UTI, ER provider contacted urology at [facility] in [place] for recommendations. Urology stated patient can stay at our facility for now, treat with anti-emetic, pain control, Urology stated if the kidney function worsens or the white count or the patient becomes febrile they would gladly accept the patient for transfer for intervention to remove the stone. Patient was accepted for further intervention. Overnight patient did well, his pain was under control he needed no futher IV narcotics, his WBC and kidney function resolved, he was eating and drinking well and was keen to be discharged home. He was referred to urology at [facility] for close follow up as urology isnt available this month at [place]. - Discharge Data Discharge Date: 05/23/20 Discharge Disposition: Home, Self-Care 01 Condition: Good - Referral to Home Health Primary Care Physician: PCP None - Patient Instructions Diet: Regular Diet as Tolerated Activity: As Tolerated Driving: May Drive Today Showering/Bathing: May Shower Notify Provider of: Fever, Increased Pain, Swelling and Redness, Drainage, Nausea and/or Vomiting - Discharge Plan *PRESCRIPTION DRUG MONITORING PROGRAM REVIEWED*: No *COPY OF PRESCRIPTION DRUG MONITORING REPORT IN PATIENT DELORES: No Prescriptions/Med Rec: Tamsulosin [Flomax] 0.4 mg PO DAILY #30 cap.er Acetaminophen [Tylenol] 650 mg PO Q8H PRN #15 tablet PRN Reason: Pain (Mild 1-3)/fever Home Medications: Home Meds Acetaminophen [Tylenol] 650 mg PO Q8H PRN #15 tablet 05/23/20 [Rx] Tamsulosin [Flomax] 0.4 mg PO DAILY #30 cap.er 05/23/20 [Rx] Oxygen Therapy Mode: Room Air Patient Handouts: Acute Kidney Injury, Adult, Acetaminophen tablets or caplets, Tamsulosin capsules Referrals: PCP,None [Primary Care Provider] - - Discharge Summary/Plan Comment DC Time >30 min.: No - Patient Data Vitals - Most Recent: Last Vital Signs Temp 36.7 C 05/23/20 08:00 Pulse 69 05/23/20 08:00 Resp 16 05/23/20 08:00 BP 121/70 05/23/20 08:00 Pulse Ox 95 05/23/20 08:00 Weight - Most Recent: 130.861 kg I&O - Last 24 hours: Intake & Output 05/22/20 05/23/20 05/23/20 22:59 06:59 14:59 Intake Total 360 Output Total 650 Balance -290 Lab Results - Last 24 hrs: Laboratory Results - last 24 hr 05/22/20 05/22/20 05/22/20 Range/Units 12:34 12:34 13:00 WBC 13.44 H (4.0-11.0) K/uL RBC 5.26 (4.50-5.90) M/uL Hgb 16.7 (13.0-17.0) g/dL Hct 48.1 (38.0-50.0) % MCV 91.4 (80.0-98.0) fL MCH 31.7 (27.0-32.0) pg MCHC 34.7 (31.0-37.0) g/dL RDW Std Deviation 41.4 (28.0-62.0) fl RDW Coeff of Jo Ann 12 (11.0-15.0) % Plt Count 236 (150-400) K/uL MPV 9.80 (7.40-12.00) fL Neut % (Auto) 77.5 (48.0-80.0) % Lymph % (Auto) 13.3 L (16.0-40.0) % Harlan % (Auto) 7.4 (0.0-15.0) % Eos % (Auto) 1.7 (0.0-7.0) % Baso % (Auto) 0.1 (0.0-1.5) % Neut # (Auto) 10.4 H (1.4-5.7) K/uL Lymph # (Auto) 1.8 (0.6-2.4) K/uL Harlan # (Auto) 1.0 H (0.0-0.8) K/uL Eos # (Auto) 0.2 (0.0-0.7) K/uL Baso # (Auto) 0.0 (0.0-0.1) K/uL Nucleated RBC % 0.0 /100WBC Nucleated RBCs # 0 K/uL Sodium 139 (136-148) mmol/L Potassium 4.1 (3.5-5.1) mmol/L Chloride 103 (98-107) mmol/L Carbon Dioxide 28.1 (21.0-32.0) mmol/L BUN 16 (7.0-18.0) mg/dL Creatinine 1.6 H (0.8-1.3) mg/dL Est Cr Clr Drug Dosing 67.98 mL/min Estimated GFR (MDRD) 49.2 ml/min Glucose 112 H (74-106) mg/dL Calcium 8.7 (8.5-10.1) mg/dL Total Bilirubin 0.6 (0.2-1.0) mg/dL AST 27 (15-37) IU/L ALT 60 (14-63) IU/L Alkaline Phosphatase 59 (46-116) U/L Total Protein 7.3 (6.4-8.2) g/dL Albumin 4.1 (3.4-5.0) g/dL Globulin 3.2 (2.6-4.0) g/dL Albumin/Globulin Ratio 1.3 (0.9-1.6) Urine Color YELLOW Urine Appearance CLEAR Urine pH 6.0 (5.0-8.0) Ur Specific Compton >= 1.030 (1.001-1.035) Urine Protein TRACE H (NEGATIVE) mg/dL Urine Glucose (UA) NEGATIVE (NEGATIVE) mg/dL Urine Ketones 15 H (NEGATIVE) mg/dL Urine Occult Blood LARGE H (NEGATIVE) Urine Nitrite NEGATIVE (NEGATIVE) Urine Bilirubin NEGATIVE (NEGATIVE) Urine Urobilinogen 0.2 (<2.0) EU/dL Ur Leukocyte Esterase NEGATIVE (NEGATIVE) Urine RBC 10-20 (0-2/HPF) Urine WBC 0-2 (0-5/HPF) Ur Epithelial Cells RARE (NONE-FEW) Urine Bacteria FEW (NEGATIVE) Urine Mucus LIGHT (NONE-MOD) SARS-CoV-2 RNA (HAILEY) (NEGATIVE) 05/22/20 05/23/20 05/23/20 Range/Units 16:20 06:10 06:10 WBC 8.44 (4.0-11.0) K/uL RBC 5.14 (4.50-5.90) M/uL Hgb 16.0 (13.0-17.0) g/dL Hct 47.2 (38.0-50.0) % MCV 91.8 (80.0-98.0) fL MCH 31.1 (27.0-32.0) pg MCHC 33.9 (31.0-37.0) g/dL RDW Std Deviation 42.1 (28.0-62.0) fl RDW Coeff of Jo Ann 13 (11.0-15.0) % Plt Count 229 (150-400) K/uL MPV 9.70 (7.40-12.00) fL Neut % (Auto) 58.3 (48.0-80.0) % Lymph % (Auto) 28.3 (16.0-40.0) % Harlan % (Auto) 8.3 (0.0-15.0) % Eos % (Auto) 4.9 (0.0-7.0) % Baso % (Auto) 0.2 (0.0-1.5) % Neut # (Auto) 4.9 (1.4-5.7) K/uL Lymph # (Auto) 2.4 (0.6-2.4) K/uL Harlan # (Auto) 0.7 (0.0-0.8) K/uL Eos # (Auto) 0.4 (0.0-0.7) K/uL Baso # (Auto) 0.0 (0.0-0.1) K/uL Nucleated RBC % 0.0 /100WBC Nucleated RBCs # 0 K/uL Sodium 140 (136-148) mmol/L Potassium 4.4 (3.5-5.1) mmol/L Chloride 104 (98-107) mmol/L Carbon Dioxide 29.5 (21.0-32.0) mmol/L BUN 14 (7.0-18.0) mg/dL Creatinine 1.3 (0.8-1.3) mg/dL Est Cr Clr Drug Dosing 83.67 mL/min Estimated GFR (MDRD) > 60.0 ml/min Glucose 89 (74-106) mg/dL Calcium 8.4 L (8.5-10.1) mg/dL Total Bilirubin 0.8 (0.2-1.0) mg/dL AST 21 (15-37) IU/L ALT 50 (14-63) IU/L Alkaline Phosphatase 55 (46-116) U/L Total Protein 6.6 (6.4-8.2) g/dL Albumin 3.4 (3.4-5.0) g/dL Globulin 3.2 (2.6-4.0) g/dL Albumin/Globulin Ratio 1.1 (0.9-1.6) Urine Color Urine Appearance Urine pH (5.0-8.0) Ur Specific Compton (1.001-1.035) Urine Protein (NEGATIVE) mg/dL Urine Glucose (UA) (NEGATIVE) mg/dL Urine Ketones (NEGATIVE) mg/dL Urine Occult Blood (NEGATIVE) Urine Nitrite (NEGATIVE) Urine Bilirubin (NEGATIVE) Urine Urobilinogen (<2.0) EU/dL Ur Leukocyte Esterase (NEGATIVE) Urine RBC (0-2/HPF) Urine WBC (0-5/HPF) Ur Epithelial Cells (NONE-FEW) Urine Bacteria (NEGATIVE) Urine Mucus (NONE-MOD) SARS-CoV-2 RNA (HAILEY) NEGATIVE (NEGATIVE) Med Orders - Current: Current Medications Acetaminophen (Tylenol) 650 mg PO Q4H PRN PRN Reason: Pain (Mild 1-3)/fever Heparin Sodium (Porcine) (Heparin Sodium) 5,000 units SUBCUT Q8H [facility] Last Admin: 05/23/20 08:11 Dose: 5,000 units Documented by: Morphine Sulfate (Morphine) 2 mg IVPUSH Q4H PRN PRN Reason: Pain (severe 7-10) Stop: 05/23/20 16:47 Ondansetron HCl (Zofran) 4 mg IVPUSH Q4H PRN PRN Reason: Nausea Pantoprazole Sodium (Protonix) 40 mg PO DAILY [facility] Last Admin: 05/23/20 08:11 Dose: 40 mg Documented by: Tamsulosin HCl (Flomax) 0.4 mg PO DAILY [facility] Last Admin: 05/23/20 08:11 Dose: 0.4 mg Documented by: Discontinued Medications Hydromorphone HCl (Dilaudid) 0.5 mg IVPUSH ONETIME ONE Stop: 05/22/20 13:09 Last Admin: 05/22/20 13:17 Dose: 0.5 mg Documented by: Lactated Ringer's (Ringers, Lactated) 1,000 mls @ 999 mls/hr IV ASDIRECTED [facility] Last Admin: 05/22/20 12:26 Dose: 999 mls/hr Documented by: Lactated Ringer's (Ringers, Lactated) 1,000 mls @ 150 mls/hr IV ASDIRECTED [facility] Lactated Ringer's (Ringers, Lactated) 1,000 mls @ 125 mls/hr IV ASDIRECTED [facility] Stop: 05/23/20 00:59 Last Admin: 05/22/20 18:25 Dose: 125 mls/hr Documented by: Morphine Sulfate (Morphine) 4 mg IVPUSH ONETIME ONE Stop: 05/22/20 12:04 Last Admin: 05/22/20 12:26 Dose: 4 mg Documented by: Morphine Sulfate (Morphine) 2 mg IVPUSH Q4H PRN PRN Reason: Pain (severe 7-10) Stop: 05/23/20 16:47
== END 2020-05-23 12:15 | disposition home or self-care (01) ==
LOC: MW.ED 11:55 → MW.MS 16:05
PROVIDERS: ADMIT Internal Medicine; ATTEND Internal Medicine
DX: N13.2 Hydronephrosis with renal and ureteral calculous obstruction (principal); J45.909 Unspecified asthma, uncomplicated; E66.9 Obesity, unspecified; F17.210 Nicotine dependence, cigarettes, uncomplicated; N17.9 Acute kidney failure, unspecified; Z20.822 Contact with and (suspected) exposure to COVID-19; Z90.49 Acquired absence of other specified parts of digestive tract; Z68.41 Body mass index [BMI] 40.0-44.9, adult
CPT/HCPCS: 36415; 74176; 80053; 81001; 85025; 87635; A9270; J1170; J1644; J2270; J7120; 99285; U0002